=== PATIENT | male | born 1965 | race Caucasian/White ===

== ENCOUNTER 2021-05-16 19:19 | Emergency (ER) | payer BC ==
[~2021-05-16] VITALS: Ht 172.7 cm; Wt 81.7 kg
[~2021-05-16 19:19] MED LIST: Colace100 MG PO; Percocet 5-3251 EACH PO
[2021-05-16] MEDS ORDERED: AMOCLA875 PO (20:30)
== END 2021-05-16 21:14 | disposition home or self-care (01) ==
LOC: ER 19:19
DX: S61.052A Open bite of left thumb without damage to nail, initial encounter (principal); S61.451A Open bite of right hand, initial encounter; W55.01XA Bitten by cat, initial encounter
CPT/HCPCS: 90471; 90714; 99282-25; A9270

== ENCOUNTER → 2021-09-30 | Outpatient (CLI) | payer BC ==
[~2021-09-30] MED LIST changes: +AMOCLA875 PO
== END ==
LOC: LAB SHORT 15:19 → PLD 15:19
DX: D48.5 Neoplasm of uncertain behavior of skin (principal)
CPT/HCPCS: 88312